=== PATIENT | male | born 1975 | race Hispanic/Latino ===

== ENCOUNTER 2021-08-11 15:30 | Emergency (ER) | payer SELFPAY ==
[~2021-08-11] VITALS: Ht 177.8 cm; Wt 83.9 kg
[2021-08-11] MEDS ORDERED: KETOROLAC 30MG VIAL (30MG/ML) IV ONE (16:00)
[2021-08-11] MEDS ORDERED: MAGNESIUM CITRATE 296 ML SOLUTION PO ONE (16:00)
[2021-08-11] MEDS ORDERED: LACTULOSE 20 GM/30 ML UDCUP PO ONE (16:00)
[2021-08-11 16:27] LABS: BASOPHILS % (AUTO) 0.6 % (0.0-5.0); EOSINOPHILS % (AUTO) 0.9 % (0.0-8.0); HEMATOCRIT 41.6 % (42-54); LYMPHOCYTES % (AUTO) 14.4 % (21.0-51.0); MEAN CORPUSCULAR HEMOGLOBIN 32.7 pg (27.0-33.0); MEAN CORPUSCULAR HGB CONC 34.4 g/dL (32.0-36.0); MEAN CORPUSCULAR VOLUME 95.2 fL (79-99); MONOCYTES % (AUTO) 7.6 % (3.0-13.0); NEUTROPHILS % (AUTO) 76.2 % (40.0-77.0); PLATELET COUNT (AUTO) 329 K/uL (130-400); RED BLOOD CELL COUNT(AUTO) 4.37 MIL/uL (4.50-6.20); RED CELL DISTRIBUTION WIDTH 11.8 % (11.0-15.5); WHITE BLOOD COUNT (AUTO) 10.5 K/uL (4.8-10.8)
[2021-08-11 16:42] LABS: ALBUMIN 3.4 g/dL (3.5-5.0); BILIRUBIN,TOTAL 0.3 mg/dL (0.2-1.0); TOTAL PROTEIN, SERUM 7.6 g/dL (6.0-8.3)
[2021-08-11 16:49] LABS: APPEARANCE,URINE Clear (CLEAR); BILIRUBIN,URINE Negative (NEGATIVE); COLOR,URINE Yellow (YELLOW); GLUCOSE, URINE (UA) Negative (NEGATIVE); KETONES,URINE Negative (NEGATIVE); LEUKOCYTE ESTERASE ,URINE Negative (NEGATIVE); NITRATE,URINE Negative (NEGATIVE); OCCULT BLOOD,URINE Negative (NEGATIVE); PROTEIN,URINE Trace mg/dL (NEGATIVE)
[2021-08-11] MEDS ORDERED: MAGNESIUM CITRATE 296 ML SOLUTION ONE (17:05)
[2021-08-11] MEDS ORDERED: LACTULOSE 20 GM/30 ML UDCUP ONE (17:05)
[2021-08-11] MEDS ORDERED: KETOROLAC 30MG VIAL (30MG/ML) ONE (17:06)
[2021-08-11 17:09] LABS: BACTERIA,URINE None Seen /HPF (None Seen); RBC,URINE None Seen /HPF (0-1); SQUAMOUS EPITHELIAL CELL,UR None Seen /HPF (0-2); WBC,URINE 0-1 /HPF (0-1)
[2021-08-11] MEDS ORDERED: LACT10PA5 PO (17:25)
[2021-08-11] MEDS ORDERED: LEVO500T90 PO (17:25)
[2021-08-11] MEDS ORDERED: DICY20TA2 PO (17:25)
[2021-08-11] MEDS ORDERED: METR375C2 PO (17:25)
[2021-08-11] MEDS ORDERED: METRONIDAZOLE 500 MG TABLET PO SCH (17:30)
[2021-08-11] MEDS ORDERED: LEVOFLOXACIN 500 MG TABLET PO SCH (17:30)
[2021-08-11 17:37] VITALS: BP 141/79
== END 2021-08-11 17:50 | disposition home or self-care (01) ==
LOC: EDH 15:30
DX: K59.00 Constipation, unspecified (principal); K57.32 Diverticulitis of large intestine without perforation or abscess without bleeding; Z79.899 Other long term (current) drug therapy
CPT/HCPCS: 36415; 74176; 80053; 81001; 83690; 85025; 86140; 96374; 99284; J1885